=== PATIENT | male | born 1965 | race Caucasian/White ===

== ENCOUNTER 2024-09-10 09:25 | Outpatient (CLI) | payer OTHER, SELFPAY ==
[2024-09-10 09:48] LABS: Basophils % 0.8 %; Eosinophils # 0.1 10^3/uL (0.0-0.8); Eosinophils % 2.2 %; Hematocrit 55.3 % (37-53); Lymphocytes % 39.8 %; Mean Corpuscular HGB Conc 33.1 g/dL (30-55); Mean Corpuscular Volume 90.8 fl (82-101); Mean Platelet Volume 10.1 fL (7.4-10.4); Monocytes # 0.6 10^3/uL (0.2-0.9); Neutrophils # 2.24 10^3/uL (1.8-7.7); Neutrophils % 44.2 %; Nucleated Red Blood Cells % 0 %; Platelet Count 227 10^3/cmm (157-399); Red Blood Count 6.09 10^6/uL (3.85-5.65); Red Cell Distribution Width 12.9 % (12.1-15.1); White Blood Count 5.07 10^3/uL (3.29-11.43)
[2024-09-10 10:32] LABS: Alanine Aminotransferase 35 U/L (0-41); Albumin Level 4.5 g/dL (3.5-5.2); Alkaline Phosphatase 124 U/L (40-130); Aspartate Amino Transferase 23 U/L (0-40); Blood Urea Nitrogen 17 mg/dL (6-20); Calcium 9.1 mg/dL (8.5-10.5); Carbon Dioxide 27 mmol/L (22-29); Chloride 104 mmol/L (98-107); Chol HDL Ratio 6.39 mg/dL (1.0-5.00); Cholesterol 230 mg/dL (0-200); Free T4 Free Thyroxine 0.92 ng/dL (0.82-1.77); Globulin 2.7 g/dL (1.3-4.6); Glucose 108 mg/dL (65-115); HDL Cholesterol 36 mg/dL (60-100); LDL Cholesterol Calculated 158 mg/dL (50-129); LDL HDL Ratio 4.39 RATIO (0.00-3.22); Osmolality Calculated 292 mOsm/kg (285-295); Sodium 140 mmol/L (136-145); Thyroid Stimulating Hormone 3.84 uIU/mL (0.27-4.20); Total Bilirubin 0.3 mg/dL (0.15-1.2); Total Protein 7.2 g/dL (6.6-8.7); Triglycerides 179 mg/dL (0-150)
[2024-09-10 10:36] LABS: Anion Gap 13.8 (5-19); Potassium 4.8 mmol/L (3.5-5.1)
[2024-09-11 06:55] LABS: Sex Hormone Binding Globulin 25 nmol/L (22-77); Testosterone Total Males IA 284 ng/dL (250-827)
[2024-09-11 08:55] LABS: Albumin 4.4 g/dL (3.6-5.1); Testosterone Bioavailable 90.2 ng/dL (110.0-575.0); Testosterone Free 44.8 pg/mL (46.0-224.0)
== END 2024-09-10 09:26 | disposition home or self-care (01) ==
LOC: LAB 09:27
PROVIDERS: PCP Family Medicine; Visit Provider Family Medicine
DX: E03.9 Hypothyroidism, unspecified (principal); E66.9 Obesity, unspecified; R79.89 Other specified abnormal findings of blood chemistry
CPT/HCPCS: 36415; 80053; 80061; 82040; 84270; 84403; 84439; 84443; 85025

== ENCOUNTER 2024-10-08 07:49 | Outpatient (CLI) | payer OTHER, SELFPAY ==
--- NOTE | 2024-10-08 09:00 | CTR_ITS ---
PROCEDURE INFORMATION: Exam: CT Abdomen And Pelvis With Contrast Exam date and time: 10/08/2024 9:08 AM Age: 59 years old Clinical indication: Condition or disease; Complications not specified; Prior surgery; Surgery date: 6+ months; Surgery type: Colon; Patient HX: Ventral incisional hernia, HX of diverticulitis x 10+ years TECHNIQUE: Imaging protocol: Computed tomography of the abdomen and pelvis with contrast. Radiation optimization: All CT scans at this facility use at least one of these dose optimization techniques: automated exposure control; mA and/or kV adjustment per patient size (includes targeted exams where dose is matched to clinical indication); or iterative reconstruction. Contrast material: OMNI 350; Contrast volume: 100 ml; Contrast route: INTRAVENOUS (IV); COMPARISON: No relevant prior studies available. RADIATION DOSE METRICS: Total DLP (mGy-cm): 732.85 FINDINGS: Lungs: Lung base granulomas. Heart: Base of heart is unremarkable as visualized. Diaphragm: Small sliding-type hiatal hernia. Liver: Normal. No mass. Gallbladder and biliary ducts: Normal. No calcified stones. No ductal dilation. Pancreas: Normal. No ductal dilation. Spleen: Normal. No splenomegaly. Adrenal glands: Normal. No mass. Kidneys and ureters: Benign right renal cyst. Nonobstructive left lower renal pole nephrolithiasis. A few left renal hypodensities too small to characterize by modality, statistically likely to represent benign entities. Stomach and bowel: Unremarkable. No obstruction. No mucosal thickening. Postsurgical change of the pelvic large bowel. Appendix: No evidence of appendicitis. Intraperitoneal space: There is stranding of the anterior omental fat adjacent the umbilicus and the fascial defect of the supraumbilical hernia Vasculature: Multiple calcified pelvic phleboliths are seen. Lymph nodes: Unremarkable. No enlarged lymph nodes. Urinary bladder: Bladder is decompressed with mild circumferential wall thickening. Reproductive: Prostate appears nodular, not significantly hypertrophic. Bones/joints: Degenerative changes visualized osseous structures. Soft tissues: Midline and right fat containing supraumbilical ventral abdominal hernia seen measures 2.7 x 6.3 x 3.8 cm (series 4, image 43; series 7, image 2). CT/CT abdomen pelvis w con* [id number] IMPRESSION: Nonspecific anterior omental fat stranding at the level of the umbilicus. This may reflect omental infarction, vascular congestion from the superimposed supraumbilical ventral abdominal hernia. Rarely cases of omental metastatic disease can appear similarly, however unlikely in this case as there is no intraperitoneal primary visualized. COMMENTS: Consistent with the [employer]'s Incidental Findings Committee white paper (J Am Juan Radiol 2018): Any incidental renal lesion less than 1 cm or classified as too small to characterize, or any incidental cystic renal lesion characterized as simple-appearing, is likely benign. No follow-up imaging is recommended for these lesions per consensus recommendations based on imaging criteria.
[2024-10-08] MEDS: iohexol 350 mg/mL 500 mL Btl (per mL) IV (09:26)
[2024-10-08] MEDS: iohexol 350 mg/mL 500 mL Btl (per mL) PO (09:26)
== END 2024-10-08 07:50 | disposition home or self-care (01) ==
LOC: RAD 07:50
PROVIDERS: PCP Family Medicine; Visit Provider Surgery
DX: K43.2 Incisional hernia without obstruction or gangrene (principal); J84.10 Pulmonary fibrosis, unspecified; N28.1 Cyst of kidney, acquired; N20.0 Calculus of kidney
CPT/HCPCS: 74177

== ENCOUNTER 2025-01-06 21:29 | Observation (INO) | payer SELFPAY ==
[2025-01-06 21:32] VITALS: BP 145/73; PULSE 75; TEMP 36.9; O2SAT 97; BMI 32.3
--- NOTE | 2025-01-06 21:53 | CTR_ITS ---
PROCEDURE INFORMATION: Exam: CT Head Without Contrast Exam date and time: 01/06/2025 10:00 PM Age: 59 years old Clinical indication: Dizziness and speech disturbance; Patient had an episode of dizziness with slurred speech at 1500 hours today. Symptoms resolved. ; Additional info: Resolved vertigo slurring speech TECHNIQUE: Imaging protocol: Computed tomography of the head without contrast. Radiation optimization: All CT scans at this facility use at least one of these dose optimization techniques: automated exposure control; mA and/or kV adjustment per patient size (includes targeted exams where dose is matched to clinical indication); or iterative reconstruction. COMPARISON: No relevant prior studies available. RADIATION DOSE METRICS: Total DLP (mGy-cm): 1123.08 FINDINGS: Brain: Normal. No hemorrhage. Unremarkable white matter. No mass effect. Cerebral ventricles: No ventriculomegaly. Paranasal sinuses: Visualized sinuses are unremarkable. No fluid levels. Mastoid air cells: Visualized mastoid air cells are well aerated. Bones: Unremarkable. No acute fracture. Soft tissues: Unremarkable. CT/CT head wo con* [id number] IMPRESSION: No acute intracranial abnormality.
--- NOTE | 2025-01-06 21:53 | XRR_ITS ---
PROCEDURE INFORMATION: Exam: XR Chest Exam date and time: 01/06/2025 10:02 PM Age: 59 years old Clinical indication: Other: AMS; Additional info: Neurosymptoms, hypertension TECHNIQUE: Imaging protocol: Radiologic exam of the chest. Views: 1 view. COMPARISON: CT abdomen pelvis w con* [id number] 10/08/2024 9:08 AM FINDINGS: Lungs: Unremarkable. No consolidation. Pleural spaces: Unremarkable. No pleural effusion. No pneumothorax. Heart/Mediastinum: Unremarkable. No cardiomegaly. Bones/joints: Unremarkable. XR/XR chest 1V portable [id number] IMPRESSION: No acute findings.
--- NOTE | 2025-01-06 21:55 | ECG_ITS ---
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
[2025-01-06 22:36] LABS: Basophils # 0.1 10^3/uL (0.0-0.1); Basophils % 0.9 %; Eosinophils # 0.1 10^3/uL (0.0-0.8); Eosinophils % 2.6 %; Hematocrit 47.4 % (37-53); Lymphocytes # 2.7 10^3/uL (0.8-4.8); Lymphocytes % 50.4 %; Mean Corpuscular HGB Conc 33.3 g/dL (30-55); Mean Corpuscular Hemoglobin 30.1 pg (27-33); Mean Corpuscular Volume 90.3 fl (82-101); Mean Platelet Volume 9.8 fL (7.4-10.4); Monocytes # 0.6 10^3/uL (0.2-0.9); Monocytes % 10.6 %; Neutrophils # 1.87 10^3/uL (1.8-7.7); Neutrophils % 34.6 %; Nucleated Red Blood Cells % 0 %; Platelet Count 190 10^3/cmm (157-399); Red Blood Count 5.25 10^6/uL (3.85-5.65); Red Cell Distribution Width 13.1 % (12.1-15.1)
[2025-01-06 22:49] LABS: INR 0.87 (0.8-1.2)
[2025-01-06 22:50] LABS: Partial Thromboplastin Time 26.2 SECONDS (23.9-36.7)
[2025-01-06 22:53] LABS: Troponin(5th) Baseline < 6 ng/L (0-15)
[2025-01-06 23:05] LABS: Alanine Aminotransferase 53 U/L (0-41); Albumin Level 4.5 g/dL (3.5-5.2); Alcohol Level < 10 mg/dL (0-10); Alkaline Phosphatase 82 U/L (40-130); Anion Gap 15.2 (5-19); Aspartate Amino Transferase 28 U/L (0-40); Blood Urea Nitrogen 20 mg/dL (6-20); Calcium 9.7 mg/dL (8.5-10.5); Carbon Dioxide 23 mmol/L (22-29); Chloride 106 mmol/L (98-107); Creatinine Clr Calc Pharmacy 118.3416; Globulin 2.2 g/dL (1.3-4.6); Glucose 99 mg/dL (65-115); Magnesium 2.3 mg/dL (1.7-2.3); Osmolality Calculated 293 mOsm/kg (285-295); Potassium 4.2 mmol/L (3.5-5.1); Sodium 140 mmol/L (136-145); Total Bilirubin 0.3 mg/dL (0.15-1.2); Total Protein 6.7 g/dL (6.6-8.7)
[2025-01-06 23:19] LABS: Thyroid Stimulating Hormone 8.34 uIU/mL (0.27-4.20)
[2025-01-06 23:38] VITALS: BP 122/57; PULSE 69; O2SAT 92
[2025-01-06 23:59] LABS: Add Urine Microscopic? NO
[2025-01-07] VITALS (16 sets, daily range): BP systolic 116–150; BP diastolic 65–102; PULSE 52–70; RESP 16–20; TEMP 36.3–36.7; O2SAT 93–97
[2025-01-07 00:03] LABS: Bilirubin Urine Negative (Negative); Blood Urine Negative (Negative); Glucose Urine UA Negative (Normal); Ketones Urine Negative (Negative); Leukocyte Esterase Urine Negative (Negative); Nitrate Urine Negative (Negative); Protein Urine Negative (Negative); Specific Gravity, Urine 1.019 (1.005-1.030); Urine Appearance Clear (CLEAR); Urine Color Yellow (Yellow); Urobilinogen Urine 0.2 mg/dL (Negative); pH Urine 5.5 (5-7)
--- NOTE | 2025-01-07 00:04 | W.ED.NEUROSD ---
Documented by User: Sere Francisco DO 01/07/25 21:40 HPI - Neuro Symptoms/Deficit General: Chief Complaint: Neuro Symptoms/Deficit Stated Complaint: stroke like symptoms Time Seen by Provider: 01/06/25 23:37 Source: patient and family Mode of arrival: ambulatory Limitations: no limitations History of Present Illness: Patient presents to the ER today with complaints of episode of slurred speech and feeling dizzy around 1500 today. He did say took 3 types of herbs at that time and noticed these things after he took them. This was a second time he took them. Patient said this never happened before. Patient has equal strength bilaterally with no deficits. Patient's said he still very mildly slurring his speech and still has little bit of right sided facial drooping. Patient is never had a TIA or CVA in the past. Patient is Noton any type anticoagulation.Patient did state took 324 mg of aspirin prior to arrival. Onset (ago): hour(s) (7) Time: 15:00 Last Observed Normal: 15:00 Timing confirmed by: spouse Location: speech and right face History of same: No Severity: mild Quality: improving Relieving factors: time Exacerbating factors: none Context: change in medication On Anticoagulants: No Associated symptoms: Reports no associated symptoms Treatments Prior to Arrival: Aspirin Related Data Home Medications ?Medication ?Instructions ?Recorded ?Confirmed 5-hydroxytryptophan (5-HTP) 100 mg 200 mg PO DAILY 01/07/25 01/07/25 capsule (5-HTP) Bacopa 750 mg PO DAILY 01/07/25 01/07/25 Cecily Powder 500 mg PO DAILY 01/07/25 01/07/25 Saccharomyces boulardii 250 mg 250 mg PO BID 01/07/25 01/07/25 capsule (Digest Probiotic (S.boulardii)) Zinc 15 mg PO DAILY 01/07/25 01/07/25 aspirin 325 mg tablet (Elian 325 mg PO DAILY 01/07/25 01/07/25 Aspirin) cinnamon bark 500 mg capsule 1,200 mg PO DAILY 01/07/25 01/07/25 (Cinnamon) magnesium L-threonate 48 mg 144 mg PO DAILY 01/07/25 01/07/25 magnesium (667 mg) capsule magnesium citrate,mag oxide 250 mg 25 mg PO DAILY 01/07/25 01/07/25 capsule hnotozxa-kl-[id number] 300 mcg-K 60 1 tab PO DAILY 01/07/25 01/07/25 mcg-lycop 600 mcg-lutein 300 mcg tablet (Centrum Silver Ultra Men's) omega-3 fatty acids 1,000 mg 2,000 mg PO DAILY 01/07/25 01/07/25 capsule potassium citrate 5 mEq (540 mg) 5 meq PO DAILY 01/07/25 01/07/25 tablet,extended release prasterone (dhea) 50 mg tablet 50 mg PO DAILY 01/07/25 01/07/25 (DHEA) s-adenosylmethionine 200 mg tablet 200 mg PO BID 01/07/25 01/07/25 (ROSA-e) vitamin B complex 1 cap PO DAILY 01/07/25 01/07/25 vitamin D3 125 mcg (5,000 1 cap PO DAILY 01/07/25 01/07/25 unit)-vitamin K2 100 mcg capsule Allergies Allergy/AdvReac Type Severity Reaction Status Date / Time No Known Allergies Allergy Verified 01/06/25 21:38 Review of Systems General: Reports: 10 or more systems reviewed and unremarkable except in HPI and below PFSH ED PFSH: Medical History Low testosterone Obesity (BMI 30.0-34.9) Annular tear of lumbar disc Hypothyroidism Surgical History History of arthroscopic knee surgery History of bowel resection History of circumcision 2022 Family History Grandfather Heart disease Grandmother Cancer Hypertension Father Diabetes Mother Diabetes Hypertension Social History Smoking and tobacco/nicotine status: never used tobacco/nicotine Alcohol intake: current Alcohol intake frequency: holidays/special occasions only Alcohol type: beer Substance/Drug Use: current NIH stroke score NIHSS: Level Of Consciousness - 1a: 0 Level Of Consciousness Questions - 1b: Both Correct Level Of Consciousness Commands - 1c: Both Correct Best Gaze - 2: Normal Visual Garza - 3: No Visual Loss Facial Palsy - 4: Minor Paralysis Motor Arm Right - 5: No Drift Motor Arm Left - 5: No Drift Motor Leg Right - 6: No Drift Motor Leg Left - 6: No Drift Limb Ataxia - 7: Absent Sensory - 8: Normal Best Language - 9: No Aphasia Dysarthia - 10: Normal Extinction And Inattention - 11: 0 Score: Total Score: 1 Physical Exam Const: COMMON NORMALS: no acute distress, average body habitus, patient oriented x3, no limitations, healthy appearing, alert and well nourished HENMT: COMMON NORMALS: normocephalic, atraumatic, hearing grossly normal bilaterally, external ears normal, EAC's normal, Normal external nose present, Normal nasal mucous membranes and turbinates present, moist oral mucous membranes and oropharynx normal HEAD & SCALP: normocephalic and atraumatic NOSE: Normal external nose present and Normal nasal mucous membranes and turbinates present EXTERNAL EAR: Yes external ears normal EXTERNAL AUDITORY CANAL: EAC's normal Eye: COMMON NORMALS: Equal, round and reactive pupils present, EOMs intact bilaterally, conjunctivae normal and no scleral icterus CONJUNCTIVA: Yes conjunctivae normal PUPIL: Yes Equal, round and reactive pupils present Neck/C-Spine: COMMON NORMALS: full ROM, no lymphadenopathy, supple, no meningeal signs, no JVD and Thyroid normal THYROID: Thyroid normal Chest: COMMONS NORMALS: normal inspection of the chest and normal palpation of entire chest wall Resp: COMMON NORMALS: normal respiratory effort, No retractions, No use of accessory muscles and clear to auscultation bilaterally AUSCULTATION: clear to auscultation bilaterally Cardio: COMMON NORMALS: no JVD, regular rate, regular rhythm, S1 normal heart sound present, S2 normal heart sound present, No gallops present (Cardio), No clicks present (Cardio), No murmurs present (Cardio) and No rub (Cardio) RATE: regular rate RHYTHM: regular rhythm HEART SOUNDS: S1 normal heart sound present and S2 normal heart sound present GI: COMMON NORMALS: Normal to inspection, nondistended, normoactive bowel sounds present, Soft to palpation, non-tender, No hepatosplenomegaly present and no masses PALPATION: Yes Soft to palpation and Yes No hepatosplenomegaly present Neuro: COMMON NORMALS: patient oriented x3 SENSORIUM/ORIENTATION: Yes alert MENINGEAL SIGNS: Yes no meningeal signs OTHER: No obvious gross deficit, possible minimal change in speech and right facial droop Course Vital Signs: Vital signs: Vital Signs Temperature 97.3 F L 01/07/25 19:45 Pulse Rate 61 01/07/25 19:45 Respiratory Rate 17 01/07/25 19:45 Blood Pressure 149/83 01/07/25 19:45 Pulse Oximetry 95 01/07/25 19:45 Oxygen Delivery Me thod Room Air 01/07/25 19:45 MDM - Neuro Symptoms/Deficit Lab Data 01/06/25 22:18 01/06/25 22:18 Radiology Impressions Chest X-Ray 01/06/25 21:53 IMPRESSION: No acute findings. Head CT 01/06/25 21:53 IMPRESSION: No acute intracranial abnormality. Head/Neck CTA 01/07/25 01:27 IMPRESSION: No large vessel stenosis or occlusion. IMPRESSION: No stenosis or occlusion. REFERENCES: NASCET CRITERIA. The degree of stenosis in the cervical segment of the internal carotid artery is based on NASCET criteria. Normal is no stenosis. Mild is less than 50% stenosis. Moderate is 50-69% stenosis. Severe is 70% to 99% stenosis. Total occlusion is no detectable patent lumen. Head MRI 01/07/25 05:35 IMPRESSION: Tiny evolving acute infarct in the left thalamus without significant change. Laboratory Results WBC 5.40 10^3/uL (3.29-11.43) 01/06/25 22:18 RBC 5.25 10^6/uL (3.85-5.65) 01/06/25 22:18 Hgb 15.80 g/dL (11.27-16.99) 01/06/25 22:18 Hct 47.4 % (37-53) 01/06/25 22:18 MCV 90.3 fl (82-101) 01/06/25 22:18 MCH 30.1 pg (27-33) 01/06/25 22:18 MCHC 33.3 g/dL (30-55) 01/06/25 22:18 RDW 13.1 % (12.1-15.1) 01/06/25 22:18 Plt Count 190 10^3/cmm (157-399) 01/06/25 22:18 MPV 9.8 fL (7.4-10.4) 01/06/25 22:18 Neut % (Auto) 34.6 % 01/06/25 22:18 Lymph % (Auto) 50.4 % 01/06/25 22:18 Nance % (Auto) 10.6 % 01/06/25 22:18 Eos % (Auto) 2.6 % 01/06/25 22:18 Baso % (Auto) 0.9 % 01/06/25 22:18 Neut # (Auto) 1.87 10^3/uL (1.8-7.7) 01/06/25 22:18 Lymph # (Auto) 2.7 10^3/uL (0.8-4.8) 01/06/25 22:18 Nance # (Auto) 0.6 10^3/uL (0.2-0.9) 01/06/25 22:18 Eos # (Auto) 0.1 10^3/uL (0.0-0.8) 01/06/25 22:18 Baso # (Auto) 0.1 10^3/uL (0.0-0.1) 01/06/25 22:18 Nucleated RBC % (auto) 0 % 01/06/25 22:18 Nucleated RBCs # 0.0 /100WBC 01/06/25 22:18 PT 12.40 SECONDS (12.1-14.9) 01/06/25 22:18 INR 0.87 (0.8-1.2) 01/06/25 22:18 APTT 26.2 SECONDS (23.9-36.7) 01/06/25 22:18 Sodium 140 mmol/L (136-145) 01/06/25 22:18 Potassium 4.2 mmol/L (3.5-5.1) 01/06/25 22:18 Chloride 106 mmol/L (98-107) 01/06/25 22:18 Carbon Dioxide 23 mmol/L (22-29) 01/06/25 22:18 Anion Gap 15.2 (5-19) 01/06/25 22:18 BUN 20 mg/dL (6-20) 01/06/25 22:18 Creatinine 0.9 mg/dL (0.7-1.2) 01/06/25 22:18 GFR Calculation 87.0 mL/min (90-130) L 01/06/25 22:18 Glucose 99 mg/dL (65-115) 01/06/25 22:18 Calculated Osmolality 293 mOsm/kg (285-295) 01/06/25 22:18 Calcium 9.7 mg/dL (8.5-10.5) 01/06/25 22:18 Magnesium 2.3 mg/dL (1.7-2.3) 01/06/25 22:18 Total Bilirubin 0.3 mg/dL (0.15-1.2) 01/06/25 22:18 AST 28 U/L (0-40) 01/06/25 22:18 ALT 53 U/L (0-41) H 01/06/25 22:18 Alkaline Phosphatase 82 U/L (40-130) 01/06/25 22:18 Troponin T Baseline < 6 ng/L (0-15) 01/06/25 22:18 Troponin T 120 Minute 6.00 ng/L (0-15) 01/07/25 00:39 Delta Troponin T 0.72402 ABS# (0-10) 01/07/25 00:39 Troponin T Hi Sens 6Hr 6.00 ng/L (0-15) 01/07/25 04:15 Troponin T Hi Sens 6Hr Delta 0.95969 ng/L (0-12) 01/07/25 04:15 Total Protein 6.7 g/dL (6.6-8.7) 01/06/25 22:18 Albumin 4.5 g/dL (3.5-5.2) 01/06/25 22:18 Globulin 2.2 g/dL (1.3-4.6) 01/06/25 22:18 TSH 8.34 uIU/mL (0.27-4.20) H 01/06/25 22:18 Free T4 0.80 ng/dL (0.82-1.77) L 01/07/25 04:15 Urine Color Yellow (Yellow) 01/06/25 23:50 Urine Appearance Clear (CLEAR) 01/06/25 23:50 Urine pH 5.5 (5-7) 01/06/25 23:50 Ur Specific Strawn 1.019 (1.005-1.030) 01/06/25 23:50 Urine Protein Negative (Negative) 01/06/25 23:50 Urine Glucose (UA) Negative (Normal) 01/06/25 23:50 Urine Ketones Negative (Negative) 01/06/25 23:50 Urine Blood Negative (Negative) 01/06/25 23:50 Urine Nitrate Negative (Negative) 01/06/25 23:50 Urine Bilirubin Negative (Negative) 01/06/25 23:50 Urine Urobilinogen 0.2 mg/dL (Negative) 01/06/25 23:50 Ur Leukocyte Esterase Negative (Negative) 01/06/25 23:50 Amorphous Sediment Not Reportable 01/06/25 23:50 Urine Opiates Screen Negative ng/mL (Negative) 01/06/25 23:50 Ur Barbiturates Screen Negative ng/mL (Negative) 01/06/25 23:50 Ur Phencyclidine Scrn Negative ng/mL (Negative) 01/06/25 23:50 Ur Amphetamines Screen Negative ng/mL (Negative) 01/06/25 23:50 U Benzodiazepines Scrn Negative ng/mL (Negative) 01/06/25 23:50 Urine Cocaine Screen Negative ng/mL (Negative) 01/06/25 23:50 U Marijuana (THC) Screen Negative ng/mL (Negative) 01/06/25 23:50 Ethyl Alcohol < 10 mg/dL (0-10) 01/06/25 22:18 All radiology interpretation(s) finalized by discharge Discharge Plan Discharge Patient Disposition: Admitted As Inpatient Admit Provider: Donnell Lyon Clinical Impression: 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 Condition: Stable Coding Level of Care Code ED Oven Unloader for Chg Fwd Documented by User: Juan C Olivo DO 01/07/25 09:32 HPI - Neuro Symptoms/Deficit General: Chief Complaint: Neuro Symptoms/Deficit Stated Complaint: stroke like symptoms Time Seen by Provider: 01/06/25 23:37 Related Data Home Medications ?Medication ?Instructions ?Recorded ?Confirmed 5-hydroxytryptophan (5-HTP) 100 mg 200 mg PO DAILY 01/07/25 01/07/25 capsule (5-HTP) Bacopa 750 mg PO DAILY 01/07/25 01/07/25 Cecily Powder 500 mg PO DAILY 01/07/25 01/07/25 Saccharomyces boulardii 250 mg 250 mg PO BID 01/07/25 01/07/25 capsule (Digest Probiotic (S.boulardii)) Zinc 15 mg PO DAILY 01/07/25 01/07/25 aspirin 325 mg tablet (Elian 325 mg PO DAILY 01/07/25 01/07/25 Aspirin) cinnamon bark 500 mg capsule 1,200 mg PO DAILY 01/07/25 01/07/25 (Cinnamon) magnesium L-threonate 48 mg 144 mg PO DAILY 01/07/25 01/07/25 magnesium (667 mg) capsule magnesium citrate,mag oxide 250 mg 25 mg PO DAILY 01/07/25 01/07/25 capsule [id number]-[id number] 300 mcg-K 60 1 tab PO DAILY 01/07/25 01/07/25 mcg-lycop 600 mcg-lutein 300 mcg tablet (Centrum Silver Ultra Men's) omega-3 fatty acids 1,000 mg 2,000 mg PO DAILY 01/07/25 01/07/25 capsule potassium citrate 5 mEq (540 mg) 5 meq PO DAILY 01/07/25 01/07/25 tablet,extended release prasterone (dhea) 50 mg tablet 50 mg PO DAILY 01/07/25 01/07/25 (DHEA) s-adenosylmethionine 200 mg tablet 200 mg PO BID 01/07/25 01/07/25 (ROSA-e) vitamin B complex 1 cap PO DAILY 01/07/25 01/07/25 vitamin D3 125 mcg (5,000 1 cap PO DAILY 01/07/25 01/07/25 unit)-vitamin K2 100 mcg capsule Allergies Allergy/AdvReac Type Severity Reaction Status Date / Time No Known Allergies Allergy Verified 01/06/25 21:38 PFS ED PFSH: Medical History Low testosterone Obesity (BMI 30.0-34.9) Annular tear of lumbar disc Hypothyroidism Surgical History History of arthroscopic knee surgery History of bowel resection History of circumcision 2022 Family History Grandfather Heart disease Grandmother Cancer Hypertension Father Diabetes Mother Diabetes Hypertension Social History Smoking and tobacco/nicotine status: never used tobacco/nicotine Alcohol intake: current Alcohol intake frequency: holidays/special occasions only Alcohol type: beer Substance/Drug Use: current NIH stroke score Score: Total Score: 1 Course Vital Signs: Vital signs: Vital Signs Temperature 97.3 F L 01/07/25 19:45 Pulse Rate 61 01/07/25 19:45 Respiratory Rate 17 01/07/25 19:45 Blood Pressure 149/83 01/07/25 19:45 Pulse Oximetry 95 01/07/25 19:45 Oxygen Delivery Me thod Room Air 01/07/25 19:45 MDM - Neuro Symptoms/Deficit Medical Decision Making Care assumed at change of shift. Patient had onset of symptoms around 1500 presented here at 2130. He is outside the window for thrombolytics most of his symptoms had resolved. CT of the head and CT of the head were both negative he had an MRI this morning which shows a small left subacute thalamic infarct. There is no large vessel occlusion. He is not neither a candidate for thrombolytics or embolectomy however he does have a new acute stroke when I examined the patient he has a little bit of dysarthria and some facial droop. we asked Dr. Villalobos to see him he felt that he facial droop a little bit more prominent and gave him a total of 3. In either event will admit the patient discussed with hospitalist orders written Lab Data 01/06/25 22:18 01/06/25 22:18 Radiology Impressions Chest X-Ray 01/06/25 21:53 IMPRESSION: No acute findings. Head CT 01/06/25 21:53 IMPRESSION: No acute intracranial abnormality. Head/Neck CTA 01/07/25 01:27 IMPRESSION: No large vessel stenosis or occlusion. IMPRESSION: No stenosis or occlusion. REFERENCES: NASCET CRITERIA. The degree of stenosis in the cervical segment of the internal carotid artery is based on NASCET criteria. Normal is no stenosis. Mild is less than 50% stenosis. Moderate is 50-69% stenosis. Severe is 70% to 99% stenosis. Total occlusion is no detectable patent lumen. Head MRI 01/07/25 05:35 IMPRESSION: Tiny evolving acute infarct in the left thalamus without significant change. Laboratory Results WBC 5.40 10^3/uL (3.29-11.43) 01/06/25 22:18 RBC 5.25 10^6/uL (3.85-5.65) 01/06/25 22:18 Hgb 15.80 g/dL (11.27-16.99) 01/06/25 22:18 Hct 47.4 % (37-53) 01/06/25 22:18 MCV 90.3 fl (82-101) 01/06/25 22:18 MCH 30.1 pg (27-33) 01/06/25 22:18 MCHC 33.3 g/dL (30-55) 01/06/25 22:18 RDW 13.1 % (12.1-15.1) 01/06/25 22:18 Plt Count 190 10^3/cmm (157-399) 01/06/25 22:18 MPV 9.8 fL (7.4-10.4) 01/06/25 22:18 Neut % (Auto) 34.6 % 01/06/25 22:18 Lymph % (Auto) 50.4 % 01/06/25 22:18 Nance % (Auto) 10.6 % 01/06/25 22:18 Eos % (Auto) 2.6 % 01/06/25 22:18 Baso % (Auto) 0.9 % 01/06/25 22:18 Neut # (Auto) 1.87 10^3/uL (1.8-7.7) 01/06/25 22:18 Lymph # (Auto) 2.7 10^3/uL (0.8-4.8) 01/06/25 22:18 Nance # (Auto) 0.6 10^3/uL (0.2-0.9) 01/06/25 22:18 Eos # (Auto) 0.1 10^3/uL (0.0-0.8) 01/06/25 22:18 Baso # (Auto) 0.1 10^3/uL (0.0-0.1) 01/06/25 22:18 Nucleated RBC % (auto) 0 % 01/06/25 22:18 Nucleated RBCs # 0.0 /100WBC 01/06/25 22:18 PT 12.40 SECONDS (12.1-14.9) 01/06/25 22:18 INR 0.87 (0.8-1.2) 01/06/25 22:18 APTT 26.2 SECONDS (23.9-36.7) 01/06/25 22:18 Sodium 140 mmol/L (136-145) 01/06/25 22:18 Potassium 4.2 mmol/L (3.5-5.1) 01/06/25 22:18 Chloride 106 mmol/L (98-107) 01/06/25 22:18 Carbon Dioxide 23 mmol/L (22-29) 01/06/25 22:18 Anion Gap 15.2 (5-19) 01/06/25 22:18 BUN 20 mg/dL (6-20) 01/06/25 22:18 Creatinine 0.9 mg/dL (0.7-1.2) 01/06/25 22:18 GFR Calculation 87.0 mL/min (90-130) L 01/06/25 22:18 Glucose 99 mg/dL (65-115) 01/06/25 22:18 Calculated Osmolality 293 mOsm/kg (285-295) 01/06/25 22:18 Calcium 9.7 mg/dL (8.5-10.5) 01/06/25 22:18 Magnesium 2.3 mg/dL (1.7-2.3) 01/06/25 22:18 Total Bilirubin 0.3 mg/dL (0.15-1.2) 01/06/25 22:18 AST 28 U/L (0-40) 01/06/25 22:18 ALT 53 U/L (0-41) H 01/06/25 22:18 Alkaline Phosphatase 82 U/L (40-130) 01/06/25 22:18 Troponin T Baseline < 6 ng/L (0-15) 01/06/25 22:18 Troponin T 120 Minute 6.00 ng/L (0-15) 01/07/25 00:39 Delta Troponin T 0.46346 ABS# (0-10) 01/07/25 00:39 Troponin T Hi Sens 6Hr 6.00 ng/L (0-15) 01/07/25 04:15 Troponin T Hi Sens 6Hr Delta 0.38213 ng/L (0-12) 01/07/25 04:15 Total Protein 6.7 g/dL (6.6-8.7) 01/06/25 22:18 Albumin 4.5 g/dL (3.5-5.2) 01/06/25 22:18 Globulin 2.2 g/dL (1.3-4.6) 01/06/25 22:18 TSH 8.34 uIU/mL (0.27-4.20) H 01/06/25 22:18 Free T4 0.80 ng/dL (0.82-1.77) L 01/07/25 04:15 Urine Color Yellow (Yellow) 01/06/25 23:50 Urine Appearance Clear (CLEAR) 01/06/25 23:50 Urine pH 5.5 (5-7) 01/06/25 23:50 Ur Specific Strawn 1.019 (1.005-1.030) 01/06/25 23:50 Urine Protein Negative (Negative) 01/06/25 23:50 Urine Glucose (UA) Negative (Normal) 01/06/25 23:50 Urine Ketones Negative (Negative) 01/06/25 23:50 Urine Blood Negative (Negative) 01/06/25 23:50 Urine Nitrate Negative (Negative) 01/06/25 23:50 Urine Bilirubin Negative (Negative) 01/06/25 23:50 Urine Urobilinogen 0.2 mg/dL (Negative) 01/06/25 23:50 Ur Leukocyte Esterase Negative (Negative) 01/06/25 23:50 Amorphous Sediment Not Reportable 01/06/25 23:50 Urine Opiates Screen Negative ng/mL (Negative) 01/06/25 23:50 Ur Barbiturates Screen Negative ng/mL (Negative) 01/06/25 23:50 Ur Phencyclidine Scrn Negative ng/mL (Negative) 01/06/25 23:50 Ur Amphetamines Screen Negative ng/mL (Negative) 01/06/25 23:50 U Benzodiazepines Scrn Negative ng/mL (Negative) 01/06/25 23:50 Urine Cocaine Screen Negative ng/mL (Negative) 01/06/25 23:50 U Marijuana (THC) Screen Negative ng/mL (Negative) 01/06/25 23:50 Ethyl Alcohol < 10 mg/dL (0-10) 01/06/25 22:18 Discharge Plan Discharge Patient Disposition: Admitted As Inpatient Admit Provider: Donnell Lyon Clinical Impression: 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
[2025-01-07 00:12] LABS: Amphetamines Screen Urine Negative (Negative); Barbiturates Screen Urine Negative (Negative); Benzodiazepines Screen Urine Negative (Negative); Cocaine Screen Urine Negative (Negative); Opiate Screen Urine Negative (Negative); PCP Screen Urine Negative (Negative); THC Screen Urine Negative (Negative)
[2025-01-07 00:13] LABS: Charge for UA Resulting for Rev
[2025-01-07 01:24] LABS: Troponin 5 2HR Delta 0.00001 ABS# (0-10)
--- NOTE | 2025-01-07 01:27 | CTR_ITS ---
PROCEDURE INFORMATION: Exam: CTA Head With Contrast, Arteriography Exam date and time: 01/07/2025 1:40 AM Age: 59 years old Clinical indication: Dizziness and giddiness and speech disturbance; Episode of RT facial droop, dizziness and slurred speech at 1500 hours yesterday. Symptoms resovled. ; Additional info: Slurred speech, right-sided facial droop TECHNIQUE: Imaging protocol: Computed tomographic angiography of the head with contrast. Exam focused on the arteries. 3D rendering (Not supervised by radiologist): MIP and/or 3D reconstructed images were created by the technologist. Radiation optimization: All CT scans at this facility use at least one of these dose optimization techniques: automated exposure control; mA and/or kV adjustment per patient size (includes targeted exams where dose is matched to clinical indication); or iterative reconstruction. Contrast material: OMNI 350; Contrast volume: 100 ml; Contrast route: INTRAVENOUS (IV); COMPARISON: CT head wo con* [id number] 01/06/2025 10:00 PM RADIATION DOSE METRICS: Total DLP (mGy-cm): 574.87 FINDINGS: ANTERIOR CIRCULATION: Right internal carotid artery: Intracranial segment is patent with no significant stenosis. No aneurysm. Right middle cerebral artery: No occlusion or significant stenosis. No aneurysm. Right anterior cerebral artery: No occlusion or significant stenosis. No aneurysm. Left internal carotid artery: Intracranial segment is patent with no significant stenosis. No aneurysm. Left middle cerebral artery: No occlusion or significant stenosis. No aneurysm. Left anterior cerebral artery: No occlusion or significant stenosis. No aneurysm. POSTERIOR CIRCULATION: Right vertebral artery: No occlusion or significant stenosis. No aneurysm. Left vertebral artery: No occlusion or significant stenosis. No aneurysm. Basilar artery: No occlusion or significant stenosis. No aneurysm. Right posterior cerebral artery: No occlusion or significant stenosis. No aneurysm. Left posterior cerebral artery: No occlusion or significant stenosis. No aneurysm. Brain: No definite mass, mass effect, or midline shift. Cerebral ventricles: No ventriculomegaly. Bones/joints: Unremarkable. No acute fracture. Soft tissues: Unremarkable. PROCEDURE INFORMATION: Exam: CTA Neck With Contrast Exam date and time: 01/07/2025 1:40 AM Age: 59 years old Clinical indication: Dizziness and giddiness and speech disturbance; Episode of RT facial droop, dizziness and slurred speech at 1500 hours yesterday. Symptoms resovled. ; Additional info: Slurred speech, right-sided facial droop TECHNIQUE: Imaging protocol: Computed tomographic angiography of the neck with contrast. Exam focused on the cervical segments of the vasculature. 3D rendering (Not supervised by radiologist): MIP and/or 3D reconstructed images were created by the technologist. Radiation optimization: All CT scans at this facility use at least one of these dose optimization techniques: automated exposure control; mA and/or kV adjustment per patient size (includes targeted exams where dose is matched to clinical indication); or iterative reconstruction. Contrast material: OMNI 350; Contrast volume: 100 ml; Contrast route: INTRAVENOUS (IV); COMPARISON: CT head wo con* [id number] 01/06/2025 10:00 PM RADIATION DOSE METRICS: Total DLP (mGy-cm): 574.87 FINDINGS: Right common carotid artery: No stenosis. No dissection or occlusion. Right internal carotid artery: No stenosis of the extracranial segment. No dissection or occlusion. Right external carotid artery: No occlusion or stenosis of the origin. Left common carotid artery: No stenosis. No dissection or occlusion. Left internal carotid artery: No stenosis of the extracranial segment. No dissection or occlusion. Left external carotid artery: No occlusion or stenosis of the origin. Right vertebral artery: No stenosis. No dissection or occlusion. Left vertebral artery: No stenosis. No dissection or occlusion. Soft tissues: Normal. No significant soft tissue swelling. Bones/joints: No acute fracture. CT/CT angio headneck* [id number] IMPRESSION: No large vessel stenosis or occlusion. IMPRESSION: No stenosis or occlusion. REFERENCES: NASCET CRITERIA. The degree of stenosis in the cervical segment of the internal carotid artery is based on NASCET criteria. Normal is no stenosis. Mild is less than 50% stenosis. Moderate is 50-69% stenosis. Severe is 70% to 99% stenosis. Total occlusion is no detectable patent lumen.
[2025-01-07] MEDS: iohexol 350 mg/mL 500 mL Btl (per mL) IV (01:49)
[2025-01-07 04:37] LABS: Troponin 5 6HR Delta 0.00001 ng/L (0-12)
--- NOTE | 2025-01-07 05:35 | MRR_ITS ---
PROCEDURE INFORMATION: Exam: MR Head Without Contrast Exam date and time: 01/07/2025 6:42 AM Age: 59 years old Clinical indication: Weakness, facial; Additional info: Right-sided facial droop, slurring speech, TECHNIQUE: Imaging protocol: Magnetic resonance imaging of the head without contrast. COMPARISON: CT angio headneck* [id number] 01/07/2025 1:40 AM FINDINGS: Brain: There is a tiny evolving acute infarct in the left thalamus which is without change allowing for difference in technique. There is no evidence of acute hemorrhage. Minimal scattered white matter hyperintensities are identified which are nonspecific. There is no pathologic enhancement. Cerebral ventricles: Normal. No ventriculomegaly. Pituitary gland and sella: There is a partially empty sella noted. Bones: Unremarkable. Paranasal sinuses: There is mild paranasal sinus mucosal thickening. Mastoid air cells: Normal as visualized. No mastoid effusion. Orbital cavities: Unremarkable. Soft tissues: Unremarkable. MR/MR head wo/w con [id number] IMPRESSION: Tiny evolving acute infarct in the left thalamus without significant change.
[2025-01-07] MEDS: gadobenate dimeglumine 20 mL vial IV (07:01)
--- NOTE | 2025-01-07 07:22 | ECG_ITS ---
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
--- NOTE | 2025-01-07 08:19 | P.CONIM_ITS ---
Providers/Reason For Consult 2 Consulting Physician/Specialty*: Steve Villalobos MD neurology and epilepsy Reason for Consult*: Stroke 01/06/2025 manifested as balance difficulty, slurred speech, right-sided weakness and right lower facial weakness Primary Care Provider: Pal Mejia MD History of Present Illness History of Present Illness Boogie Castillo is a 59 year old male with a history of low testosterone and testosterone replacement which was discontinued approximately 6 months ago secondary to reports of thick blood. The patient stated that on 01/06/2025 around 3:30 PM he was in the kitchen and suddenly felt disoriented and off balance and experiencing slurred speech. The patient stated that he still attempted to carry out water and food to his chickens but was having trouble holding the items and therefore he went inside to lay down. The patient stated that he took a nap for approximately 1 to 1-1/2 hours and when he woke up his balance was better but he was still experiencing slurred speech. The patient stated that he attempted to eat dinner but was having trouble chewing and therefore he was brought to [facility] emergency department. The patient stated he arrived around 8:30 PM on 01/06/2025. NIH score = 3 (facial droop = 2, dysarthria = 1) Noncontrast head CT was obtained on 01/06/2025 reported to revealed no acute findings. Head MRI with and without contrast was obtained on 01/07/2025 and revealed a tiny evolving acute infarct in the left thalamus without significant change. Glucose 99 (normal 65-115) Other labs consisting of CBC comprehensive metabolic panel and magnesium revealed elevated ALT of 53 (normal equals 0-41). The other labs were unrevealing Drug allergies: None Current medications: None Past medical history: Low testosterone Past medications: Testosterone replacement last use 6 months ago Family history: Remarkable for father who experienced a stroke Review of Systems 2 General: Reports: 10 or more systems reviewed and unremarkable except in HPI and below Medications/Allergies Home Medications ?Medication ?Instructions ?Recorded ?Confirmed ?Last Taken ?Type No Known Home Medications 09/04/2412/08 Unknown History Allergies Allergy/AdvReac Type Severity Reaction Status Date / Time No Known Allergies Allergy Verified 01/06/25 21:38 PFSH Acute 2 PFSH: Medical History Low testosterone Obesity (BMI 30.0-34.9) Annular tear of lumbar disc Hypothyroidism Surgical History History of arthroscopic knee surgery History of bowel resection History of circumcision 2022 Family History Grandfather Heart disease Grandmother Cancer Hypertension Father Diabetes Mother Diabetes Hypertension Social History Smoking and tobacco/nicotine status: never used tobacco/nicotine Alcohol intake: current Alcohol intake frequency: holidays/special occasions only Alcohol type: beer Substance/Drug Use: current Vitals/I&O/Wt Last Vital Signs Temp 98.4 F 01/06/25 21:32 Pulse 57 L 01/07/25 07:28 BP 150/102 01/07/25 07:28 Pulse Ox 94 01/07/25 07:28 O2 Del Method Room Air 01/07/25 05:30 Weight last 48 hrs Weight 245 lb Physical Exam 2 Narrative: NIH score = 3 (facial droop = 2, dysarthria = 1) Noncontrast head CT was obtained on 01/06/2025 reported to revealed no acute findings. Head MRI with and without contrast was obtained on 01/07/2025 and revealed a tiny evolving acute infarct in the left thalamus without significant change. Glucose 99 (normal 65-115) The patient is alert and oriented x 3. Speech fluent. Head normocephalic. Neck supple. Cranial nerves II through XII revealed obvious right lower facial weakness. Speech dysarthric. Pupils 4 mm round reactive to light and accommodation. Extraocular movements intact. Visual gonzalez appear to be full via confrontation. There were no nystagmus. Motor testing 5/5 bilaterally. Vgiuis-iptn-[id number] and mqpb-khck-uopm maneuvers revealed no ataxia. There was no drift. Sensory examination was intact to touch. There was no extinction on double sensory stimulation. Throat clear. Lungs clear. Heart regular rhythm and rate. Extremities were negative for cyanosis or edema. 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 Acute left thalamic stroke with residual right lower facial weakness and dysarthria 2. History of low testosterone and history of testosterone replacement, last used 6 months ago Plan: 1. Agree with admission for evaluation for stroke 2. Recommend obtaining 2D echocardiogram to assess for embolic source for stroke 3. Recommend obtaining hypercoagulable lab for Leiden factor V, prothrombin gene mutation, anticardiolipin antibody, beta-2 glycoprotein 1 and lupus anticoagulant and homocystine, protein S, protein C, and Antithrombin III to assess for hypercoagulable state 4. Stroke pamphlet/stroke education for patient and patient's family 5. Recommend obtaining Occupational Therapy, speech therapy and physical therapy consults 6. Recommend starting aspirin 325 mg p.o. every morning and Crestor 20 mg p.o. nightly after hypercoagulable lab has been obtained if no contraindications 7. 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
--- NOTE | 2025-01-07 12:35 | PM.HP ---
Providers/Chief Complaint Admitting Physician: Donnell Lyon Primary Care Provider: Pal Mejia MD Chief Complaint: stroke like symptoms History of Present Illness Very pleasant 59-year-old gentleman with with history of low testosterone, with history of testosterone replacement, but has been discontinued about 6 months ago, yesterday afternoon around 3:30 PM began experiencing sudden neurologic symptoms with difficulty walking, with slurred speech, right-sided facial droop, with symptoms partially improved after a nap. However, not resolved, came to the emergency department. He took 325 mg of aspirin before coming to the hospital. CT of the head in the hospital without acute bleed, other acute abnormality. Head and neck CTA without large vessel occlusion. Head MRI with tiny evolving acute infarct in the left thalamus without significant change. He was assessed by neurology as well, not found to be a candidate for reperfusion. Hospitalization was recommended for further assessment. Review of Systems Const: Denies: fever(s), chills, body aches or malaise ENMT: Denies: throat pain Card: Denies: chest pain, edema, pre-syncope or dyspnea on exertion Resp: Denies: dyspnea, productive cough, change in phlegm color or hemoptysis GI: Denies: abdominal pain, nausea, vomiting, diarrhea, constipation, hematochezia or melena : Denies: flank pain, difficulty urinating, urinary frequency or hematuria Musc: Denies: back pain, joint swelling or joint redness Skin/Breast: Denies: rash or new lesions Neuro: Reports: difficulty walking, dizziness and Slurred speech present; Denies: headache(s) or confusion Medications/Allergies Home Medications ?Medication ?Instructions ?Recorded ?Confirmed ?Last Taken ?Type 5-hydroxytryptophan (5-HTP) 100 mg 200 mg PO DAILY 01/07/25 01/07/25 01/06/25 History capsule (5-HTP) Bacopa 750 mg PO DAILY 01/07/25 01/07/25 01/06/25 History Cecily Powder 500 mg PO DAILY 01/07/25 01/07/25 01/06/25 History Saccharomyces boulardii 250 mg 250 mg PO BID 01/07/25 01/07/25 01/06/25 History capsule (Digest Probiotic (S.boulardii)) Zinc 15 mg PO DAILY 03/02/2801/07/25 01/06/25 History aspirin 325 mg tablet (Elian 325 mg PO DAILY 01/07/25 01/07/25 01/06/25 History Aspirin) cinnamon bark 500 mg capsule 1,200 mg PO DAILY 01/07/25 01/07/25 01/06/25 History (Cinnamon) magnesium L-threonate 48 mg 144 mg PO DAILY 01/07/25 01/07/25 01/06/25 History magnesium (667 mg) capsule magnesium citrate,mag oxide 250 mg 25 mg PO DAILY 01/07/25 01/07/25 01/06/25 History capsule txyltiny-rq-nsnue 300 mcg-K 60 1 tab PO DAILY 01/07/25 01/07/25 01/06/25 History mcg-lycop 600 mcg-lutein 300 mcg tablet (Centrum Silver Ultra Men's) omega-3 fatty acids 1,000 mg 2,000 mg PO DAILY 01/07/25 01/07/25 01/06/25 History capsule potassium citrate 5 mEq (540 mg) 5 meq PO DAILY 01/07/25 01/07/25 01/06/25 History tablet,extended release prasterone (dhea) 50 mg tablet 50 mg PO DAILY 01/07/25 01/07/25 01/06/25 History (DHEA) s-adenosylmethionine 200 mg tablet 200 mg PO BID 01/07/25 01/07/25 01/06/25 History (ROSA-e) vitamin B complex 1 cap PO DAILY 01/07/25 01/07/25 01/06/25 History vitamin D3 125 mcg (5,000 1 cap PO DAILY 01/07/25 01/07/25 01/06/25 History unit)-vitamin K2 100 mcg capsule Allergies Allergy/AdvReac Type Severity Reaction Status Date / Time No Known Allergies Allergy Verified 01/06/25 21:38 PFSH Acute PFSH: Medical History Low testosterone Obesity (BMI 30.0-34.9) Annular tear of lumbar disc Hypothyroidism Surgical History History of arthroscopic knee surgery History of bowel resection History of circumcision 2022 Family History Grandfather Heart disease Grandmother Cancer Hypertension Father Diabetes Mother Diabetes Hypertension Social History Smoking and tobacco/nicotine status: never used tobacco/nicotine Alcohol intake: current Alcohol intake frequency: holidays/special occasions only Alcohol type: beer Substance/Drug Use: current Vitals/I&O/Wt Last Vital Signs Temp 98.4 F 01/06/25 21:32 Pulse 52 L 01/07/25 11:01 Resp 16 01/07/25 11:01 BP 148/96 01/07/25 11:01 Pulse Ox 94 01/07/25 11:01 O2 Del Method Room Air 01/07/25 11:01 Weight last 48 hrs Weight 111.13 kg Weight 111.13 kg Physical Exam Const: COMMON NORMALS: patient oriented x3 and alert GENERAL APPEARANCE: cooperative ORIENTATION/CONSCIOUSNESS: Yes awake HENMT: COMMON NORMALS: oropharynx normal Neck/C-Spine: COMMON NORMALS: no JVD Resp: COMMON NORMALS: normal respiratory effort and clear to auscultation bilaterally AUSCULTATION: clear to auscultation bilaterally Cardio: COMMON NORMALS: no JVD, regular rhythm, S1 normal heart sound present, S2 normal heart sound present and No murmurs present (Cardio) RHYTHM: regular rhythm HEART SOUNDS: S1 normal heart sound present and S2 normal heart sound present GI: COMMON NORMALS: Normal to inspection, nondistended, normoactive bowel sounds present, Soft to palpation and non-tender PALPATION: Yes Soft to palpation Extremity: COMMON NORMALS: no joint enlargement and no pedal edema Neuro: COMMON NORMALS: patient oriented x3 and moves all extremities SENSORIUM/ORIENTATION: Yes alert OTHER: He is awake and alert, pleasant, conversant, following directions without any difficulty. Right-sided facial droop. Mild dysarthria, mild aphasia. No difficulty with FNF. Visual gonzalez full to conversation, no visual extinction. No upper or lower extremity drift. Sensory exam symmetrical, without sensory loss, without sensory extinction. 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 Not a candidate for reperfusion therapy. Started on aspirin. 325 mg as per recommendation. Monitor for risk of bleeding. Discussed with him addition of statin. Check lipid profile, A1c. Additionally assess for possibility of embolic stroke, assess bubble study TTE, monitor on telemetry. Will need follow-up for hypercoagulable workup a few weeks after stroke event including factor V Leiden, prothrombin gene mutation, anticardiolipin antibody, beta-2 glycoprotein, lupus anticoagulant and homocystine, protein S and C, Antithrombin III. Continue assessment by PT, OT, ST. Monitor blood pressures. Permissive hypertension. He does state that blood pressure usually runs wellWhenever it is checked at the office, 120/70. He has not been checking at home, although does have a cuff. Discussed with him monitoring blood pressures to assess for any episodic hypertension. Plan Hypothyroidism, noted elevated TSH. Check free T4. PDMP PDMP Reviewed: Not Reviewed Attestations Medical Necessity Statement*: Place in observation for additional assessment management after acute ischemic stroke. 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
--- NOTE | 2025-01-07 14:27 | PC.NURSE ---
This nurse assumed care of pt at 1425.
[2025-01-07] MEDS: enoxaparin 40 mg/0.4 mL Syringe SUBCUT (14:33)
--- NOTE | 2025-01-07 14:52 | USCV_ITS ---
Boogie Castillo Age: 59 Gender: M : 1965 Exam Date: 01/07/2025 18:46 Ordering Phys: Donnell Lyon MD Technologist: HELLEN [place] [facility] [place]: CVA, slurred speech, right facial droop BP: 148 / 96 HR: 58 Rhythm: Sinus Technical Quality: Adequate MEASUREMENTS (Male / Female) Normal Values 2D ECHO LV Diastolic Diameter PLAX 5.0 cm 4.2 - 5.9 / 3.9 - 5.3 cm IVS Diastolic Thickness 1.3 cm 0.6 - 1.0 / 0.6 - 0.9 cm IVS Systolic Thickness 1.5 cm LVPW Diastolic Thickness 1.5 cm 0.6 - 1.0 / 0.6 - 0.9 cm LVPW Systolic Thickness 2.0 cm LVOT Diameter 2.3 cm LV Ejection Fraction 2D Teich 60.4 % LV Ejection Fraction MOD 4C 60.9 % LV Ejection Fraction MOD 2C 56.2 % LV Ejection Fraction 2C AL 56.6 % LA Diameter 3.1 cm Aorta at Sinotubular Diameter 3.2 cm IVC Diameter 2.0 cm M-MODE LA Ao Ratio MM 1.1 AV Cusp Separation MM 2.3 cm DOPPLER AV Peak Velocity 115.0 cm/s LVOT Peak Velocity 107.0 cm/s AV Area Cont Eq vti 3.5 cm squared AV Area Cont Eq pk 3.8 cm squared MV Peak Velocity 72.0 cm/s MV Area PHT 2.6 cm squared Mitral E to A Ratio 0.9 TV Peak E Velocity 39.0 cm/s PV Peak Velocity 78.0 cm/s FINDINGS Left Ventricle Normal left ventricular size, systolic function and wall thickness, with no regional wall motion abnormalities. Left ventricular ejection fraction is estimated at 55 %. Grade I/IV diastolic dysfunction (abnormal relaxation filling pattern), normal to mildly elevated filling pressures. Right Ventricle The right ventricle is normal in size and function. Right Atrium The right atrium is normal in size. Left Atrium The left atrium is normal in size. Mitral Valve Structurally normal mitral valve without significant stenosis or prolapse. There is no mitral regurgitation. Aortic Valve Structurally normal aortic valve without significant sclerosis or stenosis. There is no aortic regurgitation. Tricuspid Valve Structurally normal tricuspid valve without significant stenosis or regurgitation. Pulmonary artery systolic pressure is normal. Pulmonic Valve Structurally normal pulmonic valve without significant stenosis. There is no pulmonic regurgitation. Pericardium Normal pericardium without effusion. Aorta Normal ascending aorta dimension. IVC The inferior vena cava appears normal. CONCLUSIONS Normal left ventricular size, systolic function and wall thickness, with no regional wall motion abnormalities. Left ventricular ejection fraction is estimated at 55 %. Grade I/IV diastolic dysfunction (abnormal relaxation filling pattern), normal to mildly elevated filling pressures. There is no pericardial effusion. No significant valve abnormalities. Right atrial pressure is around 5 mm of mercury. Please note that intracardiac shunt was not found, bubble study was negative with or without Valsalva. Willy Dove MD (Electronically Signed) Final Date: 08 January 2025 20:17 Amended: 09 January 2025 11:44 C
[2025-01-07] MEDS: lactulose oral liq 20 gm/30 mL UDC PO (20:06)
[2025-01-07] MEDS: atorvastatin 40 mg Tablet PO (20:06)
[2025-01-08 05:07] VITALS: BP 122/81; PULSE 63; RESP 18; TEMP 36.6; O2SAT 96
[2025-01-08 06:00] VITALS: PULSE 49
[2025-01-08 06:09] LABS: Chol HDL Ratio 5.89 mg/dL (1.0-5.00); Cholesterol 218 mg/dL (0-200); HDL Cholesterol 37 mg/dL (60-100); LDL Cholesterol Calculated 145 mg/dL (50-129); LDL HDL Ratio 3.92 RATIO (0.00-3.22); Triglycerides 180 mg/dL (0-150)
[2025-01-08 06:34] LABS: Estmated Average Glucose 105; Hemoglobin A1C 5.3 % (4.0-6.0)
[2025-01-08 07:35] VITALS: BP 121/74; PULSE 61; RESP 18; TEMP 36.4; O2SAT 96
--- NOTE | 2025-01-08 08:45 | PC.CHAP ---
Pastoral Care Encounter/Spiritual Assessment Type of Contact [] Declined material handling equipment stevedore visit [] Patient/Family/Request visit [] Outpatient visit [] Follow-up visit [] Physician referral [] Code/Alert [x] Routine visit [] Staff referral [] Actively dying [] Patient sleeping [] Family support [] [] Out of room [] Palliative care [] [] Receiving care in room [] Pre-surgical visit [] Trauma [] Long length of stay [] ICU visit [] Other: Relational/Emotional Strength [x] Patient feels connected with others/family/visitors/staff [] Distress [] Loneliness/isolation [] Abandonment Spirituality of Patient [] Person of Belkys [] Attends Anglican of their Belkys [] Believes in Prayer [] Reads Bible or Presybeterian materials [] There are Spiritual issues to be addressed Senior Financial Reporting Analyst Interventions [x] Prayer [x] Active listening [] Non-anxious presence [x] Spiritual/emotional support [] Crisis/trauma care [] Spiritual counseling [] Bereavement support [] Provided bereavement packet [] Provided Bible/devotional materials [] Provided toy/stuffed animal, coloring book to patient or family member [] Provided Communion [] Anointing/[place] [] Salvation [x] Completed spiritual assessment [] Other: Impact on Illness or Injury [] Angry [] Fearful [] Anxious [] Often cries [] Exhaustion [] Unable to work [] Unable to attend sikh [] Unable to walk/stand [] Unable to read [] Unable to drive [] Unable to eat/drink [] Unable to sleep [] Unable to be with family [] Patient intubated [] Other: Summary Time spent with patient 5 min
[2025-01-08] MEDS: aspirin 81 mg EC Tablet 324 MG PO (08:56)
--- NOTE | 2025-01-08 09:54 | PC.NURSE ---
home coordinator rounds at 0830, gave patient stroke education book, patient reports no residual effects of stroke at this time and states he is looking forward to going home hopefully today.
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
[2025-01-08 11:41] VITALS: BP 133/81; PULSE 82; RESP 22; TEMP 36.4; O2SAT 99
[2025-01-08 12:21] VITALS: BP 133/81; PULSE 82; O2SAT 99
== END 2025-01-08 12:23 | disposition home or self-care (01) ==
LOC: ER 01-07 09:31 → MEDSURG 01-07 11:02
PROVIDERS: Emergency Medicine; Admitting Provider Internal Medicine; Emergency Provider Family Medicine; PCP Family Medicine; Visit Provider Internal Medicine
DX: I63.81 Other cerebral infarction due to occlusion or stenosis of small artery (principal); R47.81 Slurred speech; E03.9 Hypothyroidism, unspecified; R29.810 Facial weakness; Z79.899 Other long term (current) drug therapy; Z79.82 Long term (current) use of aspirin; R47.1 Dysarthria and anarthria; Z86.718 Personal history of other venous thrombosis and embolism; D68.52 Prothrombin gene mutation; E66.9 Obesity, unspecified; Z68.32 Body mass index [BMI] 32.0-32.9, adult; Z90.49 Acquired absence of other specified parts of digestive tract
CPT/HCPCS: 36415; 70450; 70496; 70498; 70553; 71045; 80053; 80061; 80306; 80307; 81003; 83036; 83735; 84439; 84443; 84484; 85025; 85610; 85730; 92523; 92610; 93005; 96372; 96374; 97161; 97165; C8929; G0378; J1650

== ENCOUNTER 2025-03-27 08:50 | Emergency (ER) | payer OTHER, SELFPAY ==
[2025-03-27 09:09] VITALS: BP 123/76; PULSE 86; RESP 17; TEMP 36.7; O2SAT 98; BMI 31.6
[2025-03-27 09:32] LABS: Bilirubin Urine Negative (Negative); Blood Urine Negative (Negative); Glucose Urine UA Negative (Normal); Ketones Urine Negative (Negative); Leukocyte Esterase Urine Negative (Negative); Nitrate Urine Negative (Negative); Protein Urine Negative (Negative); Specific Gravity, Urine 1.013 (1.005-1.030); Urine Appearance Clear (CLEAR); Urine Color Yellow (Yellow); pH Urine 6.5 (5-7)
[2025-03-27 09:35] LABS: Add Urine Microscopic? YES; Bacteria Urine None Seen /hpf; Hyaline Casts Urine 0-4 /lpf; RBC Urine 0-2 /hpf (0-2); Squamous Epithelial Cell Urine 0-5 /hpf (0-5); WBC Urine 0-5 /hpf (0-5)
--- NOTE | 2025-03-27 10:29 | W.ED.ABDPA2 ---
HPI - Abdominal Pain General: Chief Complaint: Abdominal Pain Stated Complaint: abd pain Time Seen by Provider: 03/27/25 10:29 History of Present Illness: 59-year-old male presents to the emergency room complaining of lower abdominal pain. States he ran a fever last night has had a history of diverticulitis in the past that it sigmoid colon resection due to sigmoid diverticulitis approximately 10 years ago since then he has not really had any difficulty. He denies hematochezia or melena. No vomiting. No dysuria urgency or frequency. Associated Symptoms: Reports diarrhea; Denies chills, dysuria and fever(s) Related Data Home Medications ?Medication ?Instructions ?Recorded ?Confirmed Saccharomyces boulardii 250 mg 250 mg PO BID 01/07/25 03/27/25 capsule (Digest Probiotic (S.boulardii)) magnesium L-threonate 48 mg 144 mg PO DAILY 01/07/25 03/27/25 magnesium (667 mg) capsule [id number] 300 mcg-K 60 1 tab PO DAILY 01/07/25 03/27/25 mcg-lycop 600 mcg-lutein 300 mcg tablet (Centrum Silver Ultra Men's) omega-3 fatty acids 1,000 mg 2,000 mg PO DAILY 01/07/25 03/27/25 capsule potassium citrate 5 mEq (540 mg) 5 meq PO DAILY 01/07/25 03/27/25 tablet,extended release vitamin B complex 1 cap PO DAILY 01/07/25 03/27/25 vitamin D3 125 mcg (5,000 1 cap PO DAILY 01/07/25 03/27/25 unit)-vitamin K2 100 mcg capsule rivaroxaban 20 mg tablet (Xarelto) 20 mg PO DAILY 02/19/25 03/27/25 prasterone (DHEA) 50 mg capsule 50 mg PO DAILY 03/27/25 03/27/25 (DHEA) zinc acetate 50 mg (zinc) capsule 50 mg PO DAILY 03/27/25 03/27/25 Previous Rx's ?Medication ?Instructions ?Recorded amoxicillin 875 mg-potassium 1 tab PO BID #14 tabs 03/27/25 clavulanate 125 mg tablet hydrocodone 5 mg-acetaminophen 325 1 tab PO Q6H PRN pain #15 tabs 03/27/25 mg tablet promethazine 25 mg tablet 25 mg PO Q6H PRN nausea and 03/27/25 vomiting #20 tabs Allergies Allergy/AdvReac Type Severity Reaction Status Date / Time No Known Allergies Allergy Verified 02/11/25 09:35 Review of Systems Const: Denies: fever(s) or chills Card: Denies: chest pain Resp: Denies: dyspnea GI: Reports: abdominal pain and diarrhea : Denies: dysuria, urinary frequency or urinary urgency Musc: Denies: neck pain or back pain Skin/Breast: Denies: rash PFSH ED PFSH: Medical History (Updated 03/27/25 @ 13:33 by Juan C Olivo DO) Hx of arterial ischemic stroke (HFpEF) heart failure with preserved ejection fraction Low testosterone Obesity (BMI 30.0-34.9) Annular tear of lumbar disc Hypothyroidism Surgical History (Updated 03/27/25 @ 11:16 by Juan C Olivo DO) History of arthroscopic knee surgery History of bowel resection Sigmoid colon resection due to diverticulitis History of circumcision 2022 Family History Grandfather Heart disease Grandmother Cancer Hypertension Father Diabetes Mother Diabetes Hypertension Social History Smoking and tobacco/nicotine status: never used tobacco/nicotine Alcohol intake: current Alcohol intake frequency: holidays/special occasions only Alcohol type: beer Substance/Drug Use: current Physical Exam Const: GENERAL APPEARANCE: cooperative ORIENTATION/CONSCIOUSNESS: Yes awake, Yes oriented to person, Yes oriented to place and Yes oriented to time HENMT: COMMON NORMALS: normocephalic, atraumatic and hearing grossly normal bilaterally HEAD & SCALP: normocephalic and atraumatic Resp: COMMON NORMALS: normal respiratory effort, No retractions, No use of accessory muscles and clear to auscultation bilaterally AUSCULTATION: clear to auscultation bilaterally Cardio: COMMON NORMALS: regular rate, regular rhythm and No murmurs present (Cardio) RATE: regular rate RHYTHM: regular rhythm GI: PALPATION: Yes Tenderness to palpation present (GI) and No Guarding due to palpation present (GI) Extremity: COMMON NORMALS: normal to inspection, capillary refill normal, no clubbing, cyanosis or edema, no calf tenderness and no pedal edema Neuro: SENSORIUM/ORIENTATION: Yes oriented to person, Yes oriented to place and Yes oriented to time Skin: COMMON NORMALS: no rashes or lesions noted GENERAL SKIN EXAM: no rashes or lesions noted Course Vital Signs: Vital signs: Vital Signs Temperature 98.1 F 03/27/25 09:09 Pulse Rate 70 03/27/25 13:58 Respiratory Rate 17 03/27/25 09:09 Blood Pressure 122/85 03/27/25 13:58 Pulse Oximetry 100 03/27/25 13:58 Oxygen Delivery Me thod Room Air 03/27/25 12:18 MDM - Abdominal Pain Medical Decision Making Acute diverticulitis no sign of perforation. No leukocytosis discharged home on Augmentin 875 twice daily hydrocodone promethazine as needed follow-up with primary care Medical Records I reviewed the patient's medical records. Lab Data I reviewed the patient's lab results. 03/27/25 11:08 03/27/25 11:08 Labs/Radiology: Radiology Impressions Abdomen/Pelvis CT 03/27/25 11:10 IMPRESSION: 1. Diffuse thickening with significant associated inflammatory changes and induration about the proximal to mid hepatic flexure transverse colon compatible with acute diverticulitis. Recommend follow-up to resolution to exclude underlying neoplasm. No drainable fluid collection or abscess at this time. Laboratory Results WBC 10.51 10^3/uL (3.29-11.43) 03/27/25 11:08 RBC 5.44 10^6/uL (3.85-5.65) 03/27/25 11:08 Hgb 16.50 g/dL (11.27-16.99) 03/27/25 11:08 Hct 50.2 % (37-53) 03/27/25 11:08 MCV 92.3 fl (82-101) 03/27/25 11:08 MCH 30.3 pg (27-33) 03/27/25 11:08 MCHC 32.9 g/dL (30-55) 03/27/25 11:08 RDW 12.3 % (12.1-15.1) 03/27/25 11:08 Plt Count 147 10^3/cmm (157-399) L 03/27/25 11:08 MPV 10.6 fL (7.4-10.4) H 03/27/25 11:08 Neut % (Auto) 70.0 % 03/27/25 11:08 Lymph % (Auto) 17.1 % 03/27/25 11:08 [place] % (Auto) 11.4 % 03/27/25 11:08 Eos % (Auto) 0.8 % 03/27/25 11:08 Baso % (Auto) 0.4 % 03/27/25 11:08 Neut # (Auto) 7.36 10^3/uL (1.8-7.7) 03/27/25 11:08 Lymph # (Auto) 1.8 10^3/uL (0.8-4.8) 03/27/25 11:08 [place] # (Auto) 1.2 10^3/uL (0.2-0.9) H 03/27/25 11:08 Eos # (Auto) 0.1 10^3/uL (0.0-0.8) 03/27/25 11:08 Baso # (Auto) 0.0 10^3/uL (0.0-0.1) 03/27/25 11:08 Nucleated RBC % (auto) 0 % 03/27/25 11:08 Nucleated RBCs # 0.0 /100WBC 03/27/25 11:08 Sodium 138 mmol/L (136-145) 03/27/25 11:08 Potassium 4.1 mmol/L (3.5-5.1) 03/27/25 11:08 Chloride 104 mmol/L (98-107) 03/27/25 11:08 Carbon Dioxide 21 mmol/L (22-29) L 03/27/25 11:08 Anion Gap 17.1 (5-19) 03/27/25 11:08 BUN 14 mg/dL (6-20) 03/27/25 11:08 Creatinine 0.7 mg/dL (0.7-1.2) 03/27/25 11:08 GFR Calculation 116.2 mL/min (90-130) 03/27/25 11:08 Glucose 102 mg/dL (65-115) 03/27/25 11:08 Calculated Osmolality 287 mOsm/kg (285-295) 03/27/25 11:08 Lactic Acid 0.9 mmol/L (0.5-2.2) 03/27/25 11:08 Calcium 9.0 mg/dL (8.5-10.5) 03/27/25 11:08 Total Bilirubin 0.9 mg/dL (0.15-1.2) 03/27/25 11:08 AST 20 U/L (0-40) 03/27/25 11:08 ALT 31 U/L (0-41) 03/27/25 11:08 Alkaline Phosphatase 70 U/L (40-130) 03/27/25 11:08 Total Protein 6.7 g/dL (6.6-8.7) 03/27/25 11:08 Albumin 4.3 g/dL (3.5-5.2) 03/27/25 11:08 Globulin 2.4 g/dL (1.3-4.6) 03/27/25 11:08 Lipase 25 U/L (13-60) 03/27/25 11:08 Urine Color Yellow (Yellow) 03/27/25 09:16 Urine Appearance Clear (CLEAR) 03/27/25 09:16 Urine pH 6.5 (5-7) 03/27/25 09:16 Ur Specific [place] 1.013 (1.005-1.030) 03/27/25 09:16 Urine Protein Negative (Negative) 03/27/25 09:16 Urine Glucose (UA) Negative (Normal) 03/27/25 09:16 Urine Ketones Negative (Negative) 03/27/25 09:16 Urine Blood Negative (Negative) 03/27/25 09:16 Urine Nitrate Negative (Negative) 03/27/25 09:16 Urine Bilirubin Negative (Negative) 03/27/25 09:16 Urine Urobilinogen 1.0 mg/dL (Negative) 03/27/25 09:16 Ur Leukocyte Esterase Negative (Negative) 03/27/25 09:16 Urine RBC 0-2 /hpf (0-2) 03/27/25 09:16 Urine WBC 0-5 /hpf (0-5) 03/27/25 09:16 Ur Squamous Epith Cells 0-5 /hpf (0-5) 03/27/25 09:16 Amorphous Sediment Not Reportable 03/27/25 09:16 Urine Bacteria None seen /hpf (NONE) 03/27/25 09:16 Hyaline Casts 0-4 /lpf H 03/27/25 09:16 All radiology interpretation(s) finalized by discharge Discharge Plan Discharge Patient Disposition: Home Clinical Impression: Diverticulitis Condition: Stable Prescriptions: New amoxicillin-pot clavulanate 875-125 mg tablet 1 tab PO BID Qty: 14 0RF hydrocodone-acetaminophen 5-325 mg tablet 1 tab PO Q6H PRN (Reason: pain) Qty: 15 0RF promethazine 25 mg tablet 25 mg PO Q6H PRN (Reason: nausea and vomiting) Qty: 20 0RF No Action Xarelto 20 mg tablet 20 mg PO DAILY zinc acetate 50 mg (zinc) Capsule 50 mg PO DAILY DHEA 50 mg Capsule 50 mg PO DAILY omega-3 fatty acids 1,000 mg Capsule 2,000 mg PO DAILY potassium citrate 5 mEq (540 mg) Tablet Extended Release 5 meq PO DAILY vitamin B complex Capsule 1 cap PO DAILY Saccharomyces boulardii [Digest Probiotic (S.boulardii)] 250 mg Capsule 250 mg PO BID Centrum Silver Ultra Men's 488-39-548-300 mcg Tablet 1 tab PO DAILY magnesium L-threonate 48 mg magnesium (667 mg) Capsule 144 mg PO DAILY vitamin D3-vitamin K2 125 mcg (5,000 unit)-100 mcg Capsule 1 cap PO DAILY Discharge Orders: Discharge ED (Routine); Ordered 03/27/25 Ordered By: Juan C Olivo Referrals: Pal Mejia MD [Primary Care Provider, Family Practice] Discharge Diet: As Directed Discharge Activity: Resume usual activity Patient Instructions: Diverticulitis (ED), Diverticulitis Diet (ED), Opioid Safety, Pain Management Activity Restrictions/Additional Instructions: Thank you for choosing [facility] for your healthcare needs today. It is very important that you follow up as instructed or that you return to the Emergency Department should you have concerns or if your condition changes or worsens in any way. You were seen in the emergency room with complaints of abdominal pain. Your white count was normal CT showed mild diverticulitis recommend you start oral antibiotics you are given pain nausea medicines as well as diet recommendations follow-up with your primary care doctor return to the emergency room if you have further problems Print Language: Yakut Coding Level of Care Code ED Inspector Brake Lining for Shea Fernandez
--- NOTE | 2025-03-27 11:10 | CT_ITS ---
WS: [id number] CT ABDOMEN PELVIS TECHNIQUE: Contrast-enhanced CT of the abdomen and pelvis with coronal and sagittal reformatted images. CLINICAL INFORMATION: abd pain COMPARISON: 2023 DLP: 913.[address] scans at [facility] use at least one of these dose optimization techniques: automated exposure control; mA and/or kV adjustment per patient size (includes targeted exams where dose is matched to clinical indication); or iterative reconstruction. FINDINGS: Diffuse thickening and heterogeneous enhancement and surrounding induration about the RIGHT proximal transverse colon at the hepatic flexure. Associated diverticuli in this area. Findings compatible with acute diverticulitis. No evidence of drainable abscess or fluid collection at this time. Recommend follow-up to resolution to exclude neoplasm. Segment of involved colon extends over approximately 5 to 6 cm. Fatty liver. Normal portal vein and splenic vein plaque. Small fat-containing supraumbilical hernia. Tiny fat-containing umbilical hernia. Subsegmental atelectasis in the lung bases. Tiny esophageal hiatal hernia. Normal pancreatic parenchymal enhancement. Celiac and SMA are patent. Normal spleen. Adrenal glands are normal. Normal renal parenchymal enhancement. Small renal cysts. A few small nonobstructing calyceal calculi. Adrenal glands are normal. Small fat-containing inguinal hernias. Evidence of prior sigmoid resection with anastomosis. Colonic diverticulosis. Retroaortic LEFT renal vein. Normal appendix in the RIGHT lower quadrant. CT/CT abdomen pelvis w con* [id number] IMPRESSION: 1. Diffuse thickening with significant associated inflammatory changes and ind uration about the proximal to mid hepatic flexure transverse colon compatible w ith acute diverticulitis. Recommend follow-up to resolution to exclude underlyi ng neoplasm. No drainable fluid collection or abscess at this time.
[2025-03-27 11:14] LABS: Basophils % 0.4 %; Eosinophils # 0.1 10^3/uL (0.0-0.8); Eosinophils % 0.8 %; Hematocrit 50.2 % (37-53); Lymphocytes # 1.8 10^3/uL (0.8-4.8); Lymphocytes % 17.1 %; Mean Corpuscular HGB Conc 32.9 g/dL (30-55); Mean Corpuscular Hemoglobin 30.3 pg (27-33); Mean Corpuscular Volume 92.3 fl (82-101); Mean Platelet Volume 10.6 fL (7.4-10.4); Monocytes # 1.2 10^3/uL (0.2-0.9); Monocytes % 11.4 %; Neutrophils # 7.36 10^3/uL (1.8-7.7); Nucleated Red Blood Cells % 0 %; Platelet Count 147 10^3/cmm (157-399); Red Blood Count 5.44 10^6/uL (3.85-5.65); Red Cell Distribution Width 12.3 % (12.1-15.1); White Blood Count 10.51 10^3/uL (3.29-11.43)
[2025-03-27 11:44] LABS: Alanine Aminotransferase 31 U/L (0-41); Albumin Level 4.3 g/dL (3.5-5.2); Alkaline Phosphatase 70 U/L (40-130); Anion Gap 17.1 (5-19); Aspartate Amino Transferase 20 U/L (0-40); Blood Urea Nitrogen 14 mg/dL (6-20); Carbon Dioxide 21 mmol/L (22-29); Chloride 104 mmol/L (98-107); Creatinine Clr Calc Pharmacy 150.6595; Globulin 2.4 g/dL (1.3-4.6); Glomerular Filtration Rate 116.2 mL/min (90-130); Glucose 102 mg/dL (65-115); Lipase 25 U/L (13-60); Osmolality Calculated 287 mOsm/kg (285-295); Potassium 4.1 mmol/L (3.5-5.1); Sodium 138 mmol/L (136-145); Total Bilirubin 0.9 mg/dL (0.15-1.2); Total Protein 6.7 g/dL (6.6-8.7)
[2025-03-27 11:45] LABS: Lactic Sepsis W/Reflex 0.9 mmol/L (0.5-2.2)
[2025-03-27 12:18] VITALS: BP 126/84; PULSE 80; O2SAT 98
[2025-03-27 13:58] VITALS: BP 122/85; PULSE 70; O2SAT 100
== END 2025-03-27 13:59 | disposition home or self-care (01) ==
PROVIDERS: Emergency Provider Family Medicine; PCP Family Medicine
DX: K57.32 Diverticulitis of large intestine without perforation or abscess without bleeding (principal); E03.9 Hypothyroidism, unspecified; I50.32 Chronic diastolic (congestive) heart failure; Z79.899 Other long term (current) drug therapy; Z90.49 Acquired absence of other specified parts of digestive tract
CPT/HCPCS: 36415; 74177; 80053; 81001; 83605; 83690; 85025; 87040; 99284